=== PATIENT | female | born 1990 | race Two or more races ===

== ENCOUNTER 2021-03-24 02:30 | Emergency (ER) | payer MEDICAID ==
[~2021-03-24] VITALS: Ht 175.3 cm; Wt 65.9 kg
--- NOTE | 2021-03-24 02:57 | PHYS DOC ---
General Adult EDM: Chief Complaint: SUICDAL IDEATION HPI: HPI: Patient is a 30 year old female who presents with anxiety and suicidal thoughts. States these of been worsening over the past 2 to 3 weeks. Denies any specific plan. Denies acting on suicidal thoughts. Does frequently use methamphetamine, alcohol, and marijuana. Last use of all 3 substances was yesterday, 03/23. States her last alcoholic drink was approximately 9 PM. Reports greater than 10 alcoholic drinks yesterday. She has had alcohol withdrawal before, but states that she is more recently stopped for up to a week at a time without withdrawal symptoms. She complains of extreme irritability, paranoia, and at times auditory hallucinations. She is requesting inpatient psychiatric care. States she has been in a program called [facility] which had provided her with meds previously. Has been off of meds for 2-3 weeks since leaving the program. She believes she was previously on lithium and trazodone. Review of Systems: Review of Systems: Constitutional: Denies fever or chills. [] Eyes: Denies change in visual acuity. [] HENT: Denies nasal congestion or sore throat. [] Respiratory: Denies cough or shortness of breath. [] Cardiovascular: Denies chest pain or edema. [] GI: Denies abdominal pain, nausea, vomiting, bloody stools or diarrhea. [] : Denies dysuria. [] Musculoskeletal: Denies back pain or joint pain. [] Integument: Denies rash. [] Neurologic: Denies headache, focal weakness or sensory changes. [] Psychiatric: Reports depression, anxiety, SI, paranoia, hallucinations. Heart Score: C/O Chest Pain: No Physical Exam: PE: Constitutional: Well developed, well nourished, no acute distress, non-toxic appearance. [] HENT: Normocephalic, atraumatic] Neck: Normal range of motion, no tenderness, supple, no stridor. [] Cardiovascular:Heart rate regular rhythm, no murmur [] Lungs & Thorax: Bilateral breath sounds clear to auscultation [] Abdomen: Bowel sounds normal, soft, no tenderness, no masses, no pulsatile masses. [] Skin: Warm, dry, no erythema, no rash. [] Back: No tenderness, no CVA tenderness. [] Extremities: No tenderness, no cyanosis, no clubbing, ROM intact, no edema. [] Neurologic: Alert and oriented X 3, normal motor function, normal sensory function, no focal deficits noted. [] Psychologic: Blunted affect, depressed/anxious stated mood. Reports SI, without plan. Denies HI. Reports paranoia and hallucinations. Conversation is linear and logical. Does not seem to be responding to any internal stimuli EKG: EKG: Sinus rhythm. Rate 66. Normal axis. Normal intervals. Normal appearance of AVR. No significant ST elevation or depression. No pathologic Q waves or T wave inversions. Impression: Normal EKG. [] Radiology/Procedures: Radiology/Procedures: [] Course & Med Decision Making: Course & Med Decision Making Pertinent Labs and Imaging studies reviewed. (See chart for details) Patient 30-year-old female with stated history of bipolar currently off of the medications who presents with complaints of anxiety/depression, SI without plan, paranoia, and auditory hallucinations. She is afebrile, hemodynamically stable, and overall well-appearing on exam. Has a history of the same when noncompliant with mes. She does report polysubstance abuse that could certainly be contributing to some of her symptoms. I do not feel that she requires any medical work-up at this time, but to facilitate potential psychiatric placement labs, EKG, UDS, and Covid swab have been ordered. Psychiatric assessment team has been consulted for evaluation in the emergency department [id number] Patient met with psychiatric assessment team who felt that she was appropriate for [facility] evaluation. Patient will be transferred via ambulance given her complaints of SI. [id number] Juan Disclaimer: Juan Disclaimer: This electronic medical record was generated, in whole or in part, using a voice recognition dictation system. Departure Departure Impression: Primary Impression: Suicidal ideation Additional Impression: Bipolar disorder Disposition: 01 HOME / SELF CARE / HOMELESS (Transferred directly to [facility] for psychiatric evaluation) Additional Instructions: 28/08 Crisis Stabilization services are available for adults at: [facility] [address] [address] For a 24-hour crisis hotline call: [phone] XAVI SEYMOUR MD Mar 24, 2021 02:56
[2021-03-24 03:17] LABS: BASO # 0.1 x10^3/uL (0.0-0.2); BASO % 1 % (0-3); EOS # 0.1 x10^3/uL (0.0-0.7); EOS % 2 % (0-3); HEMATOCRIT 44.6 % (36.0-47.0); HEMOGLOBIN 14.6 g/dL (12.0-15.5); LYMPH # 1.9 x10^3/uL (1.0-4.8); LYMPH % 26 % (24-48); MEAN CORPUSCULAR HEMOGLOBIN 32 pg (25-35); MEAN CORPUSCULAR HGB CONC 33 g/dL (31-37); MEAN CORPUSCULAR VOLUME 97 fL (79-100); MONO # 0.5 x10^3/uL (0.0-1.1); MONO % 7 % (0-9); NEUT # 4.6 x10^3/uL (1.8-7.7); NEUT % 64 % (31-73); PLATELET COUNT 269 x10^3/uL (140-400); RED BLOOD COUNT 4.59 x10^6/uL (3.50-5.40); WHITE BLOOD COUNT 7.3 x10^3/uL (4.0-11.0)
[2021-03-24 03:25] LABS: CALCIUM 8.2 mg/dL (8.5-10.1); CREATININE 0.8 mg/dL (0.6-1.0); GFR 85.4; POTASSIUM 3.6 mmol/L (3.5-5.1)
[2021-03-24 03:26] LABS: BILIRUBIN,URINE NEGATIVE (NEG); CLARITY,URINE CLEAR; COLOR,URINE YELLOW; NITRITE,URINE NEGATIVE (NEG); PROTEIN,URINE NEGATIVE (NEG-TRACE)
[2021-03-24 03:31] LABS: ALBUMIN 3.3 g/dL (3.4-5.0); ALBUMIN/GLOBULIN RATIO 0.8 (1.0-1.7); TOTAL BILIRUBIN 0.4 mg/dL (0.2-1.0); TOTAL PROTEIN 7.3 g/dL (6.4-8.2)
[2021-03-24 03:32] LABS: BARBITURATES NEG (NEG); BENZODIAZEPINES NEG (NEG); CANNABINOIDS NEG (NEG); COCAINE NEG (NEG); METHADONE NEG (NEG); OPIATES NEG (NEG); PHENCYCLIDINE NEG (NEG)
[2021-03-24 03:41] LABS: AMPHETAMINE/METHAMPHETAMINE POS (NEG)
[2021-03-24 03:46] LABS: BACTERIA,URINE MOD /HPF (0-FEW); RBC,URINE 0 /HPF (0-2)
[2021-03-24 03:49] LABS: U PREG PATIENT NEGATIVE (NEG)
--- NOTE | 2021-03-24 08:26 | EKG ---
[facility] [address] [place] [address] Test Date: 2021-03-24 Test Time: 03:20:44 Pat Name: KIM REYEZ Department: Room: Gender: F Instrument Maker And Repairer: : 1990 Requested By: XAVI SEYMOUR Order Number: [id number] Reading MD: Joe Maciel Measurements Intervals [place] Rate: 66 P: 51 [place]: 156 QRS: 56 QRSD: 82 T: 43 QT: 418 QTc: 440 Interpretive Statements SINUS RHYTHM Electronically Signed On 03-27-2021 14:10:20 FIELD LABORER by Joe Maciel
[2021-03-24 16:04] VITALS: BP 115/62
== END 2021-03-24 21:15 | disposition home or self-care (01) ==
LOC: ER 02:30
DX: R45.851 Suicidal ideations (principal); F31.9 Bipolar disorder, unspecified; Z20.822 Contact with and (suspected) exposure to COVID-19
CPT/HCPCS: 80053; 80307; 81001; 81025; 85025; 87426; 93005; 99285; U0003